=== PATIENT | male | born 1940 | race Caucasian/White ===

== ENCOUNTER 2016-08-24 13:54 | Emergency (ER) | payer OTHER ==
[2016-08-24 14:01] VITALS: TEMP 98.3; BMI 23.6
[2016-08-24] MEDS ORDERED: KETOROLAC TROMETHAMINE 30 MG/1 ML VIAL IM ONE (16:57)
[2016-08-24] MEDS ORDERED: SIMETHICONE 40 MG/0.6 ML BOTTLE PO ONE (16:58)
[2016-08-24] MEDS ORDERED: KETOROLAC TROMETHAMINE 30 MG/1 ML VIAL ONE (17:17)
[2016-08-24 17:54] LABS: URINE APPEARANCE SLCLOUDY; URINE BILIRUBIN NEGATIVE (NEGATIVE); URINE COLOR DKYELLOW; URINE GLUCOSE (UA) NEGATIVE (NEGATIVE); URINE KETONE 1+ (NEGATIVE); URINE LEUK ESTERASE NEGATIVE (NEGATIVE); URINE NITRITE NEGATIVE (NEGATIVE); URINE PROTEIN NEGATIVE (NEGATIVE); URINE UROBILINOGEN NEGATIVE E.U./dl (0.2-1.0)
[2016-08-24 17:56] LABS: URINE BLOOD 2+ (NEGATIVE)
[2016-08-24 19:14] LABS: URINE MUCUS RARE; URINE RBC 10 /hpf (0-3); URINE WBC 2 /hpf (3-5)
--- NOTE | 2016-08-24 19:25 | PDOC ---
[id number] 4d RIGHT SIDE PAIN Time Seen by Provider: 08/24/16 15:58 - History of Present Illness Initial Comments: 08/24/16 19:02 CHIEF COMPLAINT: left flank pain HISTORY OF PRESENT ILLNESS: 76-year-old male with history of vertigo and anxiety and BPH resents to ED with right sided flank pain 3 days. Patient states that yesterday he felt a stabbing pain to the right side particularly when walking. Patient also states that he has been eating a lot of kale and chickpeas, which caused him uncomfortable "bloating." Patient also states that he has had problems with his bowel movements, but he was able to move his bowels yesterday . He also reports having "fallen off a wall 4 months ago, maybe that hurt my back, I don't know." He also reports a history of sciatica to his right leg but at this time he has no complaints regarding it. Patient has not taken any medications for his pain. No recent travel or sick contacts. PAST MEDICAL HISTORY: Denies past medical history FAMILY HISTORY: Denies SOCIAL HISTORY: Former smoker, "quit many decades ago." Denies alcohol, illicit drug use. SURGICAL HISTORY: Denies ALLERGIES: codeine, PCN, sulfa REVIEW OF SYSTEMS General/Constitutional: Denies fever or chills. Denies weakness, weight change. HEENT: Denies change in vision. Denies ear pain or discharge. Denies sore throat. Cardiovascular: Denies chest pain or shortness of breath. Respiratory: Denies cough, wheezing, or hemoptysis. Gastrointestinal: Denies nausea, vomiting, diarrhea or constipation. Denies rectal bleeding. Genitourinary: R flank pain x 3 days. Denies dysuria, frequency, or change in urination. Musculoskeletal: Denies joint or muscle swelling or pain. Denies neck or back pain. Skin and breasts: Denies rash or easy bruising. PHYSICAL EXAM General Appearance: Well-appearing, appropriately dressed. No apparent distress. HEENT: EOMI, PERRLA, normal ENT inspection, normal voice, TMs normal, pharynx normal. No conjunctival pallor. No photophobia, scleral icterus. Respiratory/Chest: Lungs CTAB. Cardiovascular: RRR. S1, S2. Gastrointestinal/Abdominal: Normal bowel sounds. Abdomen soft, non-distended. No tenderness or rebound tenderness. No organomegaly, pulsatile mass, guarding , hernia, hepatomegaly, splenomegaly. Musculoskeletal/Extremities: R CVA tenderness. Normal inspection. FROM of all extremities, normal capillary refill. Pelvis Stable. No tenderness to extremities, pedal edema, swelling, erythema or deformity. Integumentary: Appropriate color, dry, warm. 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 Fully oriented, alert. Appropriate mood/affect. Motor strength 5/5. No appreciable EOM palsy, facial droop or sensory deficit. 08/24/16 19:25 Past History - Past Medical History Allergies/Adverse Reactions: Allergies Allergy/AdvReac Type Severity Reaction Status Date / Time codeine Allergy Verified 08/24/16 13:58 Penicillins Allergy Verified 08/24/16 13:58 Sulfa (Sulfonamide Allergy Verified 08/24/16 13:58 Antibiotics) Home Medications: Ambulatory Orders Clonazepam [KlonoPIN] 0.5 mg PO BID 08/24/16 Finasteride [Proscar] 5 mg PO HS 08/24/16 Ciprofloxacin HCl [Cipro] 500 mg PO BID #14 tablet 08/25/16 Tamsulosin HCl [Flomax] 0.4 mg PO DAILY #10 cap.er.24h 08/25/16 Disorders: Yes Psychiatric Problems: Yes - Psycho/Social/Smoking Cessation Hx Anxiety: No Suicidal Ideation: No Smoking History: Never smoked Have you smoked in the past 12 months: No Information on smoking cessation initiated: No Hx Alcohol Use: No Drug/Substance Use Hx: No Substance Use Type: None *Physical Exam - Vital Signs Last Vital Signs Temp Pulse Resp BP Pulse Ox 98.3 F 82 18 140/76 98 08/24/16 13:59 08/24/16 13:59 08/24/16 13:59 08/24/16 13:59 08/24/16 13:59 ED Treatment Course - LABORATORY CBC & Chemistry Diagram: 08/24/16 22:30 - ADDITIONAL ORDERS Additional order review: Laboratory Results 08/24/16 17:22 Urine Color Dkyellow Urine Appearance Slcloudy Urine pH 5.0 Ur Specific [place] 1.018 Urine Protein Negative Urine Glucose (UA) Negative Urine Ketones 1+ H Urine Blood 2+ H Urine Nitrite Negative Urine Bilirubin Negative Urine Urobilinogen Negative Ur Leukocyte Esterase Negative - RADIOLOGY Radiology Studies Ordered: Category Date Time Status SPIRAL- RENAL-STONE CT [CT] Stat CT Scan 08/24/16 18:33 Ordered - Medications Given in the ED: ED Medications Discontinued Medications Generic Name Dose Route Start Last Admin Trade Name Chong PRN Reason Stop Dose Admin Ketorolac Tromethamine 30 mg 08/24/16 16:57 08/24/16 18:00 Toradol Injection - IM 08/24/16 16:58 30 mg ONCE ONE Administration Simethicone 80 mg 08/24/16 16:58 08/24/16 18:01 Mylicon Liquid - PO 08/24/16 16:59 80 mg ONCE ONE Administration Medical Decision Making - Medical Decision Making 08/24/16 19:25 76-year-old male with history of vertigo, anxiety, sciatica, and BPH resents to ED with right sided flank pain 3 days and bloating. -UA, UCx -Toradol 30 mg IM -Simethicone 80 mg po UA positive for 2+ blood. -Spiral CT to r/o stone. 08/24/16 19:59 Case discussed in detail with oncoming emergency provider including history, physical exam and ancillary studies. In brief, this patient is being seen in the ED for a chief complaint of: R flank pain, bloating I have completed the initial assessment interview note and have ordered the following labs: UA, UCx I have reviewed the following results: UA, Ucx Pending results: Spiral CT Plan for disposition as follows: pending Oncoming [facility] Trang has assumed care for the patient and will complete the evaluation and treatment. *DC/Admit/Observation/Transfer Diagnosis at time of Disposition: Renal colic - Discharge Dispostion Disposition: HOME Condition at time of disposition: Stable - Prescriptions Prescriptions: Ciprofloxacin HCl [Cipro] 500 mg PO BID #14 tablet Tamsulosin HCl [Flomax] 0.4 mg PO DAILY #10 cap.er.24h - Referrals Referrals: Pravin Elliott MD., [Staff Physician] - Korey Porras MD [Primary Care Provider] - - Patient Instructions Printed Discharge Instructions: Kidney Stones -- Adult Additional Instructions: Increase fluids Follow up with the urologist in 2 days. You have been giving the preliminary CAT scan report. Dr. Elliott was consulted on the phone regarding your symptoms and report. He advised that you take Cipro and Flomax and follow-up with him this week. Return back to the emergency department for severe/persistent or worsening symptoms. You have stated that you are pain-free for the past 3 hours while in the emergency department.
[2016-08-24 23:27] LABS: ALBUMIN 3.7 g/dl (3.4-5.0); ANION GAP 9 (8-16); CALCIUM 9.3 mg/dL (8.5-10.1); CO2 30 mmol/L (21-32); GLUCOSE,RANDOM 97 mg/dL (74-106); SGOT/AST 16 U/L (15-37); SGPT/ALT 19 U/L (12-78)
[2016-08-24 23:29] LABS: ALK PHOS 61 U/L (45-117); BILIRUBIN,TOTAL 0.8 mg/dL (0.2-1.0)
[2016-08-24] MEDS ORDERED: SODIUM CHLORIDE 500 ML IV STA (23:42)
[2016-08-25] MEDS ORDERED: LEVOFLOXACIN 500 MG TABLET (FP) PO ONE (00:02)
[2016-08-25] MEDS ORDERED: LEVOFLOXACIN 250 MG TABLET (FP) ONE (00:10)
--- NOTE | 2016-08-25 00:13 | PDOC ---
*Physical Exam - Vital Signs Last Vital Signs Temp Pulse Resp BP Pulse Ox 98.3 F 81 18 126/74 95 08/24/16 13:59 08/24/16 19:48 08/24/16 19:48 08/24/16 19:48 08/24/16 19:48 ED Treatment Course - LABORATORY CBC & Chemistry Diagram: 08/24/16 22:30 - ADDITIONAL ORDERS Additional order review: Laboratory Results 08/24/16 08/24/16 22:30 17:22 Sodium 137 Potassium 4.3 Chloride 98 Carbon Dioxide 30 Anion Gap 9 BUN 23 H Creatinine 1.0 Creat Clearance w eGFR > 60 Random Glucose 97 Calcium 9.3 Total Bilirubin 0.8 AST 16 ALT 19 Alkaline Phosphatase 61 Total Protein 7.0 Albumin 3.7 Urine Color Dkyellow Urine Appearance Slcloudy Urine pH 5.0 Ur Specific [place] 1.018 Urine Protein Negative Urine Glucose (UA) Negative Urine Ketones 1+ H Urine Blood 2+ H Urine Nitrite Negative Urine Bilirubin Negative Urine Urobilinogen Negative Ur Leukocyte Esterase Negative Urine RBC 10 Urine WBC 2 Urine Mucus Rare - Medications Given in the ED: ED Medications Discontinued Medications Generic Name Dose Route Start Last Admin Trade Name Freq PRN Reason Stop Dose Admin Ketorolac Tromethamine 30 mg 08/24/16 16:57 08/24/16 18:00 Toradol Injection - IM 08/24/16 16:58 30 mg ONCE ONE Administration Simethicone 80 mg 08/24/16 16:58 08/24/16 18:01 Mylicon Liquid - PO 08/24/16 16:59 80 mg ONCE ONE Administration *DC/Admit/Observation/Transfer Diagnosis at time of Disposition: Renal colic - Discharge Dispostion Disposition: HOME Condition at time of disposition: Stable Admit: No - Prescriptions Prescriptions: Ciprofloxacin HCl [Cipro] 500 mg PO BID #14 tablet Tamsulosin HCl [Flomax] 0.4 mg PO DAILY #10 cap.er.24h - Referrals Referrals: Korey Porras MD [Primary Care Provider] - Pravin Elliott MD., MD [Staff Physician] - - Patient Instructions Printed Discharge Instructions: Kidney Stones -- Adult Additional Instructions: Increase fluids Follow up with the urologist in 2 days. You have been giving the preliminary CAT scan report. Dr. Elliott was consulted on the phone regarding your symptoms and report. He advised that you take Cipro and Flomax and follow-up with him this week. Return back to the emergency department for severe/persistent or worsening symptoms. You have stated that you are pain-free for the past 3 hours while in the emergency department.
[2016-08-25 00:23] VITALS: BP 138/66; PULSE 62
== END 2016-08-25 00:26 | disposition home or self-care (01) ==
LOC: JER 13:54
PROC: 3E0337Z Introduction of Electrolytic and Water Balance Substance into Peripheral Vein, Percutaneous Approach (ICD-10-PCS; principal; 2016-08-24)
PROC: 3E0233Z Introduction of Anti-inflammatory into Muscle, Percutaneous Approach (ICD-10-PCS; 2016-08-24)
DX: N13.2 Hydronephrosis with renal and ureteral calculous obstruction (principal); N40.0 Benign prostatic hyperplasia without lower urinary tract symptoms; R42 Dizziness and giddiness; F41.9 Anxiety disorder, unspecified
CPT/HCPCS: 36415; 74176; 80053; 81003; 81015; 87086; 96360; 96372; 99284-25